=== PATIENT | female | born 1935 | race Caucasian/White ===

== ENCOUNTER 2017-05-16 15:28 | Emergency (ER) | payer MEDICARE ==
--- NOTE | ~2017-05-16 | CT4 ---
[facility]. [facility] A Service [facility] RADIOLOGY TEXT RESULTS PATIENT: SUMANTH JOHNSON LOCATION: [facility] [place] : 39 UNIT #: [id number] AGE: [address]: Kenyon Farooq MD SEX: F ORDER DR: [id number] [place] [id number] E MR#: [id number] #: [id number] NAME: SUMANTH JOHNSON : 1935 SEX: F STUDY DATE/TIME: 05/16/2017 17:32 UNIT: SED ROOM: STUDY DESCRIPTION: CT Abd and Pelv Wo Cont Attending Physician: Kenyon Farooq M.D. Ordering Physician: Kenyon Farooq M.D. Primary Care Physician: Rik Rivera M.D. MEDICAL IMAGING REPORT This report is preliminary unless electronic signature is present. EXAM CT abdomen and pelvis without contrast HISTORY Left flank pain and left posterior hip pain for 1 day. No injury. FINDINGS CT abdomen and pelvis was performed without contrast. This CT examination was performed with one or more of the following radiation dose reduction techniques: automatic exposure control, adjustment of mA and/or kV according to patient size, and iterative reconstruction. CT ABDOMEN: No hydronephrosis. 2.5 cm cyst upper pole right kidney and 4.4 cm cyst lower pole left kidney are incidentally noted. The liver, spleen, pancreas, and adrenal glands are normal. Incidental small proximal transverse duodenal diverticulum. Moderate amount of stool in nondistended right colon. Normal caliber abdominal aorta. CT PELVIS: Extensive sigmoid diverticulosis. No diverticulitis. Normal appendix. No free fluid. No abscess. Hysterectomy. 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 IMPRESSION 1. No acute findings in the abdomen or pelvis. 2. No urinary obstruction. 3. Incidental bilateral renal cysts. 4. Extensive sigmoid diverticulosis but no diverticulitis. 5. Normal appendix. 6. 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 [facility] A Service [facility] RADIOLOGY TEXT RESULTS PATIENT: SUMANTH JOHNSON LOCATION: SED : 39 UNIT #: [id number] AGE: [address]: Kenyon Farooq MD SEX: F ORDER DR: Dictated by... Mil Frank M.D. THIS IS AN ELECTRONICALLY VERIFIED REPORT Mil Frank M.D. at 05/17/2017 11:00 PM DONNELL/tramaine TD: 05/17/2017 07:08 JOB #: [id number] MEDICAL IMAGING REPORT Page 1 of 1
[~2017-05-16 15:28] MED LIST: GLUCOTROL XL PO; HCTZ PO; LOTREL PO; VYTORIN 10/10 T1 TAB PO
[2017-05-16 16:25] LABS: URINE SOURCE CLEAN CATCH
[2017-05-16 16:31] LABS: URINE APPEARANCE CLEAR; URINE BILIRUBIN NEG (NEG); URINE BLOOD TRACE-LYSED (NEG); URINE COLOR YELLOW; URINE GLUCOSE 300 MG/DL (NORM); URINE KETONE NEG (NEG); URINE LEUKOCYTE ESTERASE NEG (NEG); URINE NITRATE NEG (NEG); URINE PROTEIN 2+ (NEG); URINE UROBILINOGEN 0.2 MG/DL (NORM)
[2017-05-16 16:38] LABS: MICRO INDICATED? YES
[2017-05-16 16:40] LABS: BASOPHIL% 0.1 % (0-2.5); EOSINOPHIL# 0.2 X10e3 (0-0.7); HEMATOCRIT 32.6 % (35.0-45.0); HEMOGLOBIN 10.8 gm/dL (12.0-16.0); LYMPHOCYTE# 1.3 X10e3 (1.0-3.5); LYMPHOCYTE% 16.4 % (17.0-45.0); MEAN CELL VOLUME 89.1 FL (83-96); MEAN CORPUSCULAR HEMOGLOBIN 29.6 PG (28-34); MEAN CORPUSCULAR HGB CONC 33.2 g/dL (30-36); MEAN PLATELET VOLUME 8.2 FL (6.5-11.5); MONOCYTE# 0.7 X10e3 (0-1.0); MONOCYTE% 8.3 % (3.0-12.0); NEUTROPHIL# 5.9 X10e3 (1.5-7.1); NEUTROPHIL% 73.2 % (40-75); PLATELET COUNT 293 X10e3 (140-420); RED BLOOD COUNT 3.65 X10e (3.90-5.30); WHITE BLOOD COUNT 8.1 X10e3 (4.0-10.5)
[2017-05-16 16:42] LABS: URINE RBC 0-2 /[HPF] (0-2)
[2017-05-16 16:43] LABS: DIFF IND NO
[2017-05-16 16:43] LABS: CULTURE INDICATED? YES; URINE BACTERIA NEG (NEG); URINE SQUAMOUS EPITHELIAL CELL FEW /[HPF]; URINE TRANSITIONAL EPI CELLS OCCAS /[HPF]
[2017-05-16 16:59] LABS: BUN/CREATININE RATIO 24.54; CALCIUM SERUM 8.3 mg/dL (8.4-10.2); CREATININE SERUM 1.1 mg/dL (0.6-1.4); GLOM FILT RATE Estimated 47.7 mL/min (>60); POTASSIUM 4.8 mmol/L (3.5-5.1)
== END 2017-05-16 18:51 | disposition home or self-care (01) ==
LOC: SED 15:28
PROVIDERS: Emergency Medicine
DX: M25.552 Pain in left hip (principal); E11.65 Type 2 diabetes mellitus with hyperglycemia; M19.90 Unspecified osteoarthritis, unspecified site; I10 Essential (primary) hypertension; Z90.710 Acquired absence of both cervix and uterus; Z90.49 Acquired absence of other specified parts of digestive tract; Z85.3 Personal history of malignant neoplasm of breast; Z88.2 Allergy status to sulfonamides
CPT/HCPCS: 36415; 74176; 80048; 81003; 85025; 87086; 99284; J1885